=== PATIENT | male | born 1950 | race Caucasian/White ===

== ENCOUNTER → 2020-08-15 | Outpatient (CLI) | payer MEDICARE | LOC: HEART CORB 10:00 | DX: R07.9 Chest pain, unspecified (principal); R06.00 Dyspnea, unspecified; I08.1 Rheumatic disorders of both mitral and tricuspid valves; Z86.79 Personal history of other diseases of the circulatory system | CPT/HCPCS: 78452; 93306; A9502; J2785 ==

== ENCOUNTER → 2020-11-07 | Outpatient (CLI) | payer MEDICARE ==
[~2020-11-07] MED LIST: BAYER CHEWABLE81 MG PO; ISOSORBIDE MONO30 MG PO; LIPITOR20 MG PO; TOPROL XL 25 MG25 MG PO; ZESTRIL5 MG PO
[2020-11-07 08:26] LABS: HEMOGLOBIN 15.1 gm/dl (14.0-17.5); RED BLOOD COUNT 5.12 M/UL (4.20-5.50); WHITE BLOOD COUNT 7.2 K/UL (4.5-11.0)
[2020-11-07 08:30] LABS: BUN/CREATININE RATIO 25 (0-10)
== END ==
LOC: CATH 07:02
PROVIDERS: Internal Medicine Cardiovascular Disease
DX: I25.118 Atherosclerotic heart disease of native coronary artery with other forms of angina pectoris (principal); I25.5 Ischemic cardiomyopathy; I10 Essential (primary) hypertension; E78.5 Hyperlipidemia, unspecified; Z95.5 Presence of coronary angioplasty implant and graft; Z79.82 Long term (current) use of aspirin; Z79.899 Other long term (current) drug therapy; Z20.822 Contact with and (suspected) exposure to COVID-19
CPT/HCPCS: 71045; 80048; 85025; 85610; 93005; 99152; 99153; C1769; C1894; J1644; J2250; J3010; Q9967; U0002